=== PATIENT | male | born 1980 | race African-American/Black ===

== ENCOUNTER 2024-09-07 17:13 | Emergency (ER) | payer MEDICAID ==
[~2024-09-07] VITALS: Ht 190.5 cm; Wt 109.0 kg
[2024-09-07 17:14] VITALS: PULSE 87; O2SAT 99
[2024-09-07 17:20] VITALS: BP 141/92; RESP 18; TEMP 37.1; O2SAT 99
[2024-09-07] MEDS ORDERED: NAPR-681 MT (20:51)
== END 2024-09-07 21:34 | disposition home or self-care (01) ==
LOC: ER 17:13
DX: M25.571 Pain in right ankle and joints of right foot (principal)
CPT/HCPCS: 73610; 99283